=== PATIENT | female | born 1965 | race Caucasian/White ===

== ENCOUNTER 2017-12-08 01:55 | Emergency (ER) | payer OTHER ==
[2017-12-08] MEDS: LORAZEPAM 1 MG TAB PO (02:47)
[2017-12-08 03:02] LABS: ADD MAN DIFF? NO
[2017-12-08 03:03] LABS: BASOPHIL # 0.1 10^3/ul (0.0-0.1); BASOPHILS % 0.6 % (0.0-2.0); EOSINOPHILS # 0.4 10^3/ul (0.0-0.5); EOSINOPHILS % 4.1 % (0.0-7.0); HEMATOCRIT 38.9 % (37.0-47.0); HEMOGLOBIN 13.1 g/dl (12.0-16.0); LYMPHOCYTES % 29.6 % (15.0-51.0); MEAN CORPUSCULAR HEMOGLOBIN 28.6 pg (29.0-33.0); MEAN CORPUSCULAR HGB CONC 33.7 g/dl (32.0-37.0); MEAN CORPUSCULAR VOLUME 84.9 fl (82.0-101.0); MEAN PLATELET VOLUME 10.3 fl (7.4-10.4); MONOCYTE # 1.1 10^3/ul (0.3-0.9); MONOCYTES % 10.4 % (0.0-11.0); NEUTROPHIL # 5.6 10^3/ul (1.6-7.5); PLATELET COUNT 293 10^3/UL (140-415); RED BLOOD COUNT 4.58 10^6/ul (4.20-5.40); RED CELL DISTRIBUTION WIDTH 14.1 % (11.5-14.5)
[2017-12-08 03:03] LABS: WHITE BLOOD COUNT 10.2 10^3/ul (4.8-10.8)
[2017-12-08 03:08] LABS: ADD UMIC NO; UR ASCORBIC ACID NEGATIVE (NEGATIVE); UR BILIRUBIN (Dip) NEGATIVE (NEGATIVE); UR BLOOD (Dip) NEGATIVE (NEGATIVE); UR CLARITY CLEAR (CLEAR); UR COLOR COLORLESS (YELLOW); UR GLUCOSE (Dip) NEGATIVE (NEGATIVE); UR KETONES (Dip) NEGATIVE (NEGATIVE); UR LEUKOCYTE ESTERASE (Dip) NEGATIVE Leu/ul (NEGATIVE); UR NITRITE (Dip) NEGATIVE (NEGATIVE); UR SPECIFIC GRAVITY (Dip) 1.003 (1.003-1.030); UR TOTAL PROTEIN (Dip) NEGATIVE (NEGATIVE); UR UROBILINOGEN (Dip) NEGATIVE (NEGATIVE)
[2017-12-08 03:21] LABS: ANION GAP 17 (8-16); BLOOD UREA NITROGEN 11 mg/dl (7-20); CALCIUM 9.7 mg/dl (8.4-10.2); CARBON DIOXIDE 24 mmol/L (21-31); CHLORIDE 109 mmol/L (97-110); GLUCOSE 115 mg/dl (70-220); SODIUM 146 mmol/L (135-144)
[2017-12-08 03:37] LABS: TROPONIN-I < 0.012 ng/ml (0.00-0.12)
== END 2017-12-08 04:33 | disposition home or self-care (01) ==
LOC: FTE 01:55
DX: R06.02 Shortness of breath (principal); J45.909 Unspecified asthma, uncomplicated; I10 Essential (primary) hypertension; E11.9 Type 2 diabetes mellitus without complications
CPT/HCPCS: 36415; 71045; 80048; 81003; 84484; 85025; 93005; 99285-25

== ENCOUNTER 2018-06-22 10:35 | Observation (INO) | payer MEDICAID, OTHER ==
[2018-06-22 11:20] LABS: ADD MAN DIFF? NO
[2018-06-22] MEDS: ASPIRIN 325 MG TAB PO (11:20)
[2018-06-22] MEDS: morphine 4 MG/ML VIAL IV (11:21)
[2018-06-22] MEDS: ONDANSETRON 4 MG INJ IV (11:21)
[2018-06-22] MEDS: NITROGLYCERIN (SL) 0.4 MG TAB SL (11:21)
[2018-06-22] MEDS: NITROGLYCERIN 2% 1 GM OINT PKT TD (11:21)
[2018-06-22 11:25] LABS: BASOPHILS % 0.4 % (0.0-2.0); EOSINOPHILS # 0.2 10^3/ul (0.0-0.5); EOSINOPHILS % 2.1 % (0.0-7.0); HEMATOCRIT 40.1 % (37.0-47.0); HEMOGLOBIN 13.3 g/dl (12.0-16.0); LYMPHOCYTES # 2.4 10^3/ul (0.8-2.9); LYMPHOCYTES % 21.5 % (15.0-51.0); MEAN CORPUSCULAR HEMOGLOBIN 30.2 pg (29.0-33.0); MEAN CORPUSCULAR HGB CONC 33.2 g/dl (32.0-37.0); MEAN CORPUSCULAR VOLUME 90.9 fl (82.0-101.0); MEAN PLATELET VOLUME 10.6 fl (7.4-10.4); MONOCYTE # 0.9 10^3/ul (0.3-0.9); MONOCYTES % 7.9 % (0.0-11.0); NEUTROPHIL # 7.5 10^3/ul (1.6-7.5); NEUTROPHILS % 67.7 % (39.0-77.0); PLATELET COUNT 292 10^3/UL (140-415); RED BLOOD COUNT 4.41 10^6/ul (4.20-5.40); RED CELL DISTRIBUTION WIDTH 12.8 % (11.5-14.5)
[2018-06-22 11:50] LABS: ALANINE AMINOTRANSFERASE 85 IU/L (13-69); ALBUMIN 4.1 g/dl (3.3-4.9); ALKALINE PHOSPHATASE 93 IU/L (42-121); ANION GAP 12 (8-16); ASPARTATE AMINO TRANSFERASE 74 IU/L (15-46); BILIRUBIN,INDIRECT 0.3 mg/dl (0-1.1); BILIRUBIN,TOTAL 0.3 mg/dl (0.2-1.3); BLOOD UREA NITROGEN 10 mg/dl (7-20); CALCIUM 9.4 mg/dl (8.4-10.2); CARBON DIOXIDE 27 mmol/L (21-31); CHLORIDE 106 mmol/L (97-110); CREATININE 0.54 mg/dl (0.44-1.00); GLUCOSE 237 mg/dl (70-220); POTASSIUM 3.8 mmol/L (3.5-5.1); SODIUM 141 mmol/L (135-144); TOTAL PROTEIN 7.5 g/dl (6.1-8.1)
[2018-06-22 11:59] LABS: TROPONIN-I < 0.012 ng/ml (0.000-0.120)
[2018-06-22] MEDS ORDERED: ONDANSETRON 4 MG INJ IV ×2 (13:00→13:30)
[2018-06-22] MEDS: KETOROLAC 30 MG INJ IV (13:16)
[2018-06-22] MEDS ORDERED: MAGNESIUM HYDROXIDE 30ML CUP PO (13:30)
[2018-06-22] MEDS ORDERED: hydrALAzine 20 MG INJ IV (13:30)
[2018-06-22] MEDS ORDERED: LORAZEPAM 2 MG INJ IV (13:30)
[2018-06-22] MEDS ORDERED: DOCUSATE SODIUM 100 MG CAP PO (13:30)
[2018-06-22] MEDS ORDERED: ALBUTEROL/IPRATROPIUM (NEB) 3 ML AMP HHN (13:30)
[2018-06-22] MEDS ORDERED: morphine 2 MG INJ IV (13:30)
[2018-06-22] MEDS ORDERED: NITROGLYCERIN (SL) 0.4 MG TAB SL (13:30)
[2018-06-22] MEDS ORDERED: NA PHOSPHATE/BIPHOS 133 ML ENEMA PR (13:30)
[2018-06-22] MEDS ORDERED: NACL 0.9% 3 ML SYG IV (13:30)
[2018-06-22] MEDS ORDERED: ACETAMINOPHEN 325 MG TAB PO (13:30)
[2018-06-22] MEDS ORDERED: GLUCAGON 1 MG INJ IM (14:00)
[2018-06-22] MEDS ORDERED: GLUCOSE GEL 15 GRAM TUBE PO ×2 (14:00)
[2018-06-22] MEDS ORDERED: DEXTROSE 50% 50 ML SYRINGE IV ×2 (14:00)
[2018-06-22] MEDS ORDERED: GLUCOSE GEL 15 GRAM TUBE BUCCAL (14:00)
[2018-06-22 14:28] LABS: FREE T4 (FREE THYROXINE) 1.06 ng/dl (0.64-1.79)
[2018-06-22] MEDS: ACETAMINOPHEN 325 MG TAB PO (14:38)
[2018-06-22 14:52] LABS: CREATINE KINASE 70 IU/L (23-200)
[2018-06-22 15:05] LABS: CK INDEX 0.8; CK-MB 0.59 ng/ml (0.0-2.4); TROPONIN-I < 0.012 ng/ml (0.000-0.120)
[2018-06-22] MEDS: SOD CHLORIDE 0.45% 1,000 ML IV (15:55)
[2018-06-22] MEDS: INSULIN ASPART [NOVOLOG] 3 ML PEN SC ×2 (18:42→22:21)
[2018-06-22 20:08] LABS: CREATINE KINASE 59 IU/L (23-200)
[2018-06-22 20:17] LABS: TROPONIN-I < 0.012 ng/ml (0.000-0.120)
[2018-06-22 20:57] LABS: CK-MB 0.59 ng/ml (0.0-2.4)
[2018-06-22] MEDS: HYDROCODONE/APAP (5/325) TAB PO (21:01)
[2018-06-22] MEDS: HEPARIN 5,000 UNIT/0.5 ML VIAL SC (21:02)
[2018-06-22] MEDS: INSULIN GLARGINE [LANTus] (100 UNITS/ML) SYG SC (22:22)
[2018-06-23] MEDS: ACCU-CHEK XX (02:00)
[2018-06-23] MEDS: SOD CHLORIDE 0.45% 1,000 ML IV ×2 (05:39→16:07)
[2018-06-23 06:13] LABS: ADD MAN DIFF? NO
[2018-06-23 06:24] LABS: WHITE BLOOD COUNT 7.9 10^3/ul (4.8-10.8)
[2018-06-23 06:24] LABS: BASOPHIL # 0.1 10^3/ul (0.0-0.1); BASOPHILS % 0.6 % (0.0-2.0); EOSINOPHILS # 0.3 10^3/ul (0.0-0.5); EOSINOPHILS % 3.9 % (0.0-7.0); HEMATOCRIT 37.6 % (37.0-47.0); HEMOGLOBIN 12.4 g/dl (12.0-16.0); LYMPHOCYTES # 2.4 10^3/ul (0.8-2.9); MEAN CORPUSCULAR HEMOGLOBIN 30.1 pg (29.0-33.0); MEAN CORPUSCULAR VOLUME 91.3 fl (82.0-101.0); MONOCYTE # 0.7 10^3/ul (0.3-0.9); NEUTROPHIL # 4.3 10^3/ul (1.6-7.5); NEUTROPHILS % 55.2 % (39.0-77.0); PLATELET COUNT 284 10^3/UL (140-415); RED BLOOD COUNT 4.12 10^6/ul (4.20-5.40); RED CELL DISTRIBUTION WIDTH 12.8 % (11.5-14.5)
[2018-06-23 06:57] LABS: ANION GAP 11 (8-16); BLOOD UREA NITROGEN 15 mg/dl (7-20); CARBON DIOXIDE 28 mmol/L (21-31); CHLORIDE 106 mmol/L (97-110); CREATININE 0.67 mg/dl (0.44-1.00); GLUCOSE 169 mg/dl (70-220); MAGNESIUM 1.8 mg/dl (1.7-2.5); PHOSPHORUS 5.1 mg/dl (2.5-4.9); POTASSIUM 3.9 mmol/L (3.5-5.1); SODIUM 141 mmol/L (135-144)
[2018-06-23 07:07] LABS: HEMOGLOBIN A1C 8.3 % (0-5.9)
[2018-06-23] MEDS: INSULIN ASPART [NOVOLOG] 3 ML PEN SC ×3 (08:00→17:36)
[2018-06-23] MEDS: ASPIRIN (EC) 325 MG TAB PO (08:52)
[2018-06-23] MEDS: LISINOPRIL 20 MG TAB PO (08:52)
[2018-06-23] MEDS: PANTOPRAZOLE (EC) 40 MG TAB PO (08:52)
[2018-06-23] MEDS: HEPARIN 5,000 UNIT/0.5 ML VIAL SC ×2 (08:53→20:27)
[2018-06-23] MEDS: HYDROCODONE/APAP (5/325) TAB PO ×2 (09:02→16:32)
[2018-06-23 09:27] LABS: CHOL/HDL RATIO 3.7 RATIO; HDL CHOLESTEROL 36 mg/dl (37-92); LDL CHOLESTEROL,CALCULATED 71 mg/dl; TRIGLYCERIDES 146 mg/dl (0-149)
[2018-06-23 09:27] LABS: CHOLESTEROL 136 mg/dl (100-200)
[2018-06-23] MEDS: REGADENOSON 0.4 MG/5 ML SYG (13:45)
[2018-06-23] MEDS: INSULIN GLARGINE [LANTus] (100 UNITS/ML) SYG SC (20:22)
== END 2018-06-23 20:51 | disposition home or self-care (01) ==
LOC: E/R 10:35 → TEL 12:47
DX: R07.9 Chest pain, unspecified (principal); E11.9 Type 2 diabetes mellitus without complications; Z79.84 Long term (current) use of oral hypoglycemic drugs; I10 Essential (primary) hypertension; E78.00 Pure hypercholesterolemia, unspecified; J45.909 Unspecified asthma, uncomplicated
CPT/HCPCS: 36415; 71045; 78452; 80048; 80053; 80061; 82550; 82553; 82962; 83036; 83735; 84100; 84439; 84443; 84484; 85025; 93005; 93017; 93306; 96374; 96375; 99217; 99285-25; G0378